=== PATIENT | female | born 1940 | race Caucasian/White ===

== ENCOUNTER 2018-07-06 23:53 | Inpatient (IN) | payer MEDICARE, MEDICAID ==
[~2018-07-06] VITALS: Ht 152.4 cm; Wt 67.1 kg
[~2018-07-06 23:53] MED LIST: BENZ1TAB7 PO; CARV25TA2 PO; ERGO400T7 PO; LEVO50TA8 PO; LISI40TA4 PO; LOSA100T31 PO; MELA5TAB PO; PANT40TA4 PO; ROSU5TAB PO
[2018-07-07 00:15] VITALS: BP 106/62
[2018-07-07] MEDS ORDERED: MAGNESIUM HYDROXIDE 30 ML UDC PO PRN (01:00)
[2018-07-07] MEDS ORDERED: ACETAMINOPHEN 325 MG TABLET PO PRN (01:00)
[2018-07-07] MEDS ORDERED: MAG HYDROX/AL HYDROX/SIMETH 30 ML UDC PO PRN (01:00)
--- NOTE | 2018-07-07 04:46 | NUR ---
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 PER HOLD PATIENT WROTE NOTE TO HER THERAPIST STARTED SCREAMING WANTING TO . NO PLAN VOICED, HOPELESS, LOST FRIEND, LABILE MOOD. HAS LONG HISTORY OF BIPOLAR. PLACED PATIENT IN BED, AWAKE, ALERT ORIENTED X3-4, DENIES SI, SHOWS NO S/S OF ANY PAIN, NO ACUTE DISTRESS NOTED. DEPRESSED, FLAT AFFECT, CALM, COOPERATIVE, POOR JUDGEMENT, ANXIOUS. LIVES ALONE, NKA. REFUSED GENERAL SKIN ASSESSMENT, REFUSED MRSA SCREEN, MED RECON, WILL NOTIFY DR. HAZEL ABOUT MED RECONCILIATION. DAUGHTER WILLIS BAIN WILL BE NOTIFIED OF ADMISSION.. BELONGINGS INVENTORIED AND CHECKED FOR CONTRABAND.PATIENT FUSED TO SIGN CONSENT. BED LOCKED AND PLACED ON LOWEST POSITION. WILL CONTINUE TO MONITOR Q 15 MINS. TO MAINTAIN SAFETY.
--- NOTE | 2018-07-07 06:54 | NUR ---
Paged and spoke with Dr. Bolaños, Re: Med Recon.
--- NOTE | 2018-07-07 06:56 | NUR ---
CALLED PATIENT'S DAUGHTER, WILLIS BAIN ABOUT ADMISSION, LEFT A MESSAGE
[2018-07-07 08:00] VITALS: BP 108/59
[2018-07-07] MEDS ORDERED: Medication Not On Formulary EA (Melatonin 5 MG) PO SCH (09:00)
[2018-07-07] MEDS ORDERED: Medication Not On Formulary EA (Rosuvastatin Calcium (Crestor) 5 MG) PO SCH (09:00)
[2018-07-07] MEDS ORDERED: ERGOCALCIFEROL (VITAMIN D 2) 50,000 UNIT CAPSULE PO SCH (09:30)
[2018-07-07] MEDS: LISINOPRIL (20MG) 20 MG TABLET PO SCH (10:48)
[2018-07-07] MEDS: PANTOPRAZOLE 40 MG TABLET.DR PO SCH (10:48)
[2018-07-07] MEDS: LEVOTHYROXINE SODIUM 50 MCG TABLET PO SCH (10:48)
[2018-07-07] MEDS: LOSARTAN POTASSIUM 50 MG TABLET PO SCH (11:43)
[2018-07-07] MEDS: CARVEDILOL 12.5 MG TABLET PO SCH ×2 (11:43→17:55)
[2018-07-07 16:00] VITALS: BP 127/72
[2018-07-07 20:00] VITALS: BP 133/64
[2018-07-07] MEDS: LORAZEPAM 0.5 MG TABLET PO PRN (20:12)
[2018-07-07] MEDS: ATORVASTATIN 10 MG TABLET PO SCH (21:10)
[2018-07-07] MEDS: MIRTAZAPINE 15 MG TABLET PO SCH (21:10)
[2018-07-07] MEDS ORDERED: QUETIAPINE FUMARATE 25 MG TABLET PO SCH (22:00)
[2018-07-08 06:25] LABS: BASOPHILS % (AUTO) 0.7 % (0.0-2.0); EOSINOPHILS % (AUTO) 3.9 % (0.0-6.0); HEMATOCRIT 37 % (33-45); HEMOGLOBIN 12.8 g/dL (11.5-14.8); LYMPHOCYTES % (AUTO) 42.4 % (20.0-44.0); MEAN CORPUSCULAR HGB CONC 35 g/dl (31.0-36.0); MEAN CORPUSCULAR VOLUME 93 fL (82-100); MONOCYTES # (AUTO) 0.6 /CMM (0.1-1.30); MONOCYTES % (AUTO) 11.8 % (2.0-12.0); NEUTROPHILS % (AUTO) 41.2 % (43.0-81.0); PLATELET COUNT (AUTO) 188 /CMM (150-450); RED BLOOD CELL COUNT(AUTO) 4.02 MIL/uL (4.0-5.2); WHITE BLOOD COUNT (AUTO) 4.7 K/uL (4.3-11.0)
[2018-07-08 06:44] LABS: ALANINE AMINOTRANSFERASE 28 U/L (12-78); ALBUMIN 2.9 g/dL (3.4-5.0); ALKALINE PHOSPHATASE 104 U/L (46-116); ASPARTATE AMINOTRANSFERASE 23 U/L (15-37); BILIRUBIN,TOTAL 0.5 mg/dL (0.2-1.0); CALCIUM, SERUM 8.5 mg/dL (8.5-10.1); CARBON DIOXIDE 27 mmol/L (21-32); CHLORIDE 102 mmol/L (98-107); GLUCOSE 106 mg/dL (74-106); MAGNESIUM 2.1 mg/dL (1.8-2.4); PHOSPHORUS 3.7 mg/dL (2.5-4.9); POTASSIUM 3.9 mmol/L (3.5-5.1); SODIUM SERUM 137 mmol/L (136-145); TOTAL PROTEIN, SERUM 6.4 g/dL (6.4-8.2); UREA NITROGEN, BLOOD 30 mg/dL (7-18)
[2018-07-08 06:54] LABS: CHOLESTEROL 184 mg/dL (<200); HDL CHOLESTEROL 60 mg/dL (40-60); LDL 104 mg/dL (0-99); THYROID STIMULATING HORMONE 2.275 uIU/mL (0.358-3.74); TRIGLYCERIDES 154 mg/dL (30-150)
[2018-07-08 08:00] VITALS: BP 134/58
[2018-07-08] MEDS: LOSARTAN POTASSIUM 50 MG TABLET PO SCH (08:47)
[2018-07-08] MEDS: CARVEDILOL 12.5 MG TABLET PO SCH ×2 (08:47→17:32)
[2018-07-08] MEDS: PANTOPRAZOLE 40 MG TABLET.DR PO SCH (08:48)
[2018-07-08] MEDS: LEVOTHYROXINE SODIUM 50 MCG TABLET PO SCH (08:48)
[2018-07-08] MEDS: LISINOPRIL (20MG) 20 MG TABLET PO SCH (08:48)
[2018-07-08 16:00] VITALS: BP 156/95
[2018-07-08 20:18] VITALS: BP 154/70
[2018-07-08] MEDS: ATORVASTATIN 10 MG TABLET PO SCH (21:33)
[2018-07-08] MEDS: MIRTAZAPINE 15 MG TABLET PO SCH (21:33)
[2018-07-08] MEDS: TEMAZEPAM 7.5 MG CAPSULE PO PRN (21:39)
[2018-07-08] MEDS ORDERED: QUETIAPINE FUMARATE 25 MG TABLET PO SCH (22:00)
--- NOTE | 2018-07-09 06:39 | NUR ---
Refused weekly skin assessment. Offered x3 and still refused.
[2018-07-09 08:00] VITALS: BP 160/78
[2018-07-09] MEDS: CARVEDILOL 12.5 MG TABLET PO SCH ×2 (09:04→16:56)
[2018-07-09] MEDS: LISINOPRIL (20MG) 20 MG TABLET PO SCH (09:05)
[2018-07-09] MEDS: LOSARTAN POTASSIUM 50 MG TABLET PO SCH (09:05)
[2018-07-09] MEDS: PANTOPRAZOLE 40 MG TABLET.DR PO SCH (09:05)
[2018-07-09] MEDS: LEVOTHYROXINE SODIUM 50 MCG TABLET PO SCH (09:05)
--- NOTE | 2018-07-09 11:20 | NUR ---
NTAA contacted Pts daughter Karen [phone] to discuss discharge plan and collateral information. Daughter stated it is safe for pt to return home once stable for discharge. Daughter also stated pt needs Psychiatrist referral. SW will refer pt to Dr. Brian once discharged.
--- NOTE | 2018-07-09 11:57 | NUR ---
INITIAL DISCHARGE PLAN: Patient will return home [address] [address] [facility] [address] [place] [id number] . Pts daughter Karen [phone] stated it is safe for pt to return home once stable for discharge. SW will help form a safe and proper discharge in collaboration with .
[2018-07-09 12:25] LABS: APPEARANCE,URINE CLEAR (CLEAR); BILIRUBIN,URINE NEGATIVE (NEGATIVE); BLOOD, URINE NEGATIVE Ery/uL (NEGATIVE); COLOR,URINE YELLOW (YELLOW); KETONES,URINE NEGATIVE (NEGATIVE); LEUKOCYTE ESTERASE ,URINE NEGATIVE (NEGATIVE); NITRITE, URINE NEGATIVE (NEGATIVE); PROTEIN,URINE NEGATIVE (NEGATIVE); UGLUCOSE NEGATIVE (NEGATIVE); UROBILINOGEN,URINE 0.2 EU/dL (0.2)
[2018-07-09 16:00] VITALS: BP 182/67
[2018-07-09 20:38] VITALS: BP 154/68
[2018-07-09] MEDS: QUETIAPINE FUMARATE 25 MG TABLET PO SCH (21:16)
[2018-07-09] MEDS: TEMAZEPAM 7.5 MG CAPSULE PO PRN (21:17)
[2018-07-09] MEDS: MIRTAZAPINE 15 MG TABLET PO SCH (21:18)
[2018-07-09] MEDS: ATORVASTATIN 10 MG TABLET PO SCH (21:18)
--- NOTE | 2018-07-09 21:19 | NUR ---
Temazepam 7.5 mg cap po given for sleep per her request.
--- NOTE | 2018-07-10 02:01 | NUR ---
POC discussed with RN and endorsed. 15 min head check done at report. Patient sleeping, no s/s of distress or danger. RN will continue to monitor patient q 15 min. Safety precautions in place.
[2018-07-10 08:00] VITALS: BP 135/59
[2018-07-10] MEDS: PANTOPRAZOLE 40 MG TABLET.DR PO SCH (08:32)
[2018-07-10] MEDS: CARVEDILOL 12.5 MG TABLET PO SCH ×2 (08:33→16:06)
[2018-07-10] MEDS: LEVOTHYROXINE SODIUM 50 MCG TABLET PO SCH (08:33)
[2018-07-10] MEDS: LISINOPRIL (20MG) 20 MG TABLET PO SCH (08:33)
[2018-07-10] MEDS: LOSARTAN POTASSIUM 50 MG TABLET PO SCH (08:34)
--- NOTE | 2018-07-10 11:05 | NUR ---
NATA contacted Pts daughter Karen [phone] and left a voicemail informing her pt will be discharged tomorrow Monday07/11/18 back home.
[2018-07-10 16:00] VITALS: BP 165/79
[2018-07-10] MEDS: LORAZEPAM 0.5 MG TABLET PO PRN (16:10)
--- NOTE | 2018-07-10 16:10 | NUR ---
NURSING NOTE: PT STATING SHE IS VERY ANXIOUS, REQUESTING ATIVAN. ADMINISTERED ATIVAN 0.5MG PO PER MD ORDER. WILL CONTINUE TO MONITOR.
[2018-07-10 19:53] VITALS: BP 157/70
[2018-07-10] MEDS: QUETIAPINE FUMARATE 25 MG TABLET PO SCH (21:01)
[2018-07-10] MEDS: MIRTAZAPINE 15 MG TABLET PO SCH (21:01)
[2018-07-10] MEDS: ATORVASTATIN 10 MG TABLET PO SCH (21:01)
[2018-07-10] MEDS: TEMAZEPAM 7.5 MG CAPSULE PO PRN (21:34)
[2018-07-11 08:00] VITALS: BP 152/73
[2018-07-11] MEDS: PANTOPRAZOLE 40 MG TABLET.DR PO SCH (08:46)
[2018-07-11] MEDS: LEVOTHYROXINE SODIUM 50 MCG TABLET PO SCH (08:47)
[2018-07-11] MEDS: LISINOPRIL (20MG) 20 MG TABLET PO SCH (08:48)
[2018-07-11] MEDS: CARVEDILOL 12.5 MG TABLET PO SCH (08:48)
[2018-07-11 08:49] VITALS: BP 152/73
[2018-07-11] MEDS: LOSARTAN POTASSIUM 50 MG TABLET PO SCH (08:49)
--- NOTE | 2018-07-11 11:50 | NUR ---
GPS RN NOTE: PATIENT WAS REQUESTING TO HAVE SLEEPING PILLS ORDER FOR SLEEP ON THE PRESCRIPTION, NOTIFIED DR. MCDANIEL AND PER CALL THE PHARMACY OF THE PATIENT AND ORDER A RESTORIL 7.5MG #30 0 REFILL AND GIVE THE DANN NUMBER. CALLED [facility] ([phone]), PHARMACY OF THE PATIENT AND SPOKE TO KRISTIAN, REGARDING THE MEDICATION, INSTRUCTED ALSO KRISTIAN TO CALL THE DOCTOR. Addendum: 07/11/18 at 1256 by SARAH PINZON II, RN [facility] THE [facility] OF THE PATIENT OF [facility]
--- NOTE | 2018-07-11 11:54 | NUR ---
NATA attempted to contacted Pts daughter Karen [phone] and left a voicemail informing her pt will be discharged today Monday07/11/18 back home at 12:00noon.
--- NOTE | 2018-07-11 12:10 | NUR ---
Discharged patient to [facility] via Tax[facility], patient assisted down the elevator. Patient denies SI/HI/AH/VH and agreed to the discharge instruction. Patient has no sob, no acute distress, breathing even and unlabored, denies pain and discomfort, discharged
--- NOTE | 2018-07-11 12:25 | NUR ---
DISCHARGE NOTE: Pt was discharged on Monday07/11/18 at 12:00pm via [facility] home to [facility] [address] [facility] [address] [place] [id number] . Pts daughter Karen [phone] has been notified. Pts mood is euthymic with congruent affect. Pt denied suicidal/homicidal ideation and denied visual/auditory hallucinations. Pt will be under the care of Psychiatrist: Dr. Naima Brian [address] [facility] [address] [address] [phone]: Dr. Eliseo Laery [address] [facility] [address], [place] [address] [phone]. The multidisciplinary exitcare form was done, printed, signed, and given to the patient.
== END 2018-07-11 12:10 | DRG 885 ==
LOC: GPS 23:53
PROVIDERS: ADMIT Psychiatry & Neurology Psychosomatic Medicine; ATTEND Hospitalist
DX: F33.3 Major depressive disorder, recurrent, severe with psychotic symptoms (principal); F23 Brief psychotic disorder; R45.851 Suicidal ideations; K21.9 Gastro-esophageal reflux disease without esophagitis; I10 Essential (primary) hypertension; F41.9 Anxiety disorder, unspecified; E78.5 Hyperlipidemia, unspecified; D64.9 Anemia, unspecified; E03.9 Hypothyroidism, unspecified; M19.90 Unspecified osteoarthritis, unspecified site
CPT/HCPCS: 36415; 80053-TC; 80061-TC; 81000-TC; 83735-TC; 84100-TC; 84443-TC; 85025-TC

== ENCOUNTER 2019-03-15 07:44 | Emergency (ER) | payer MEDICARE, MEDICAID ==
[~2019-03-15] VITALS: Ht 152.4 cm; Wt 75.3 kg
[~2019-03-15 07:44] MED LIST changes: -BENZ1TAB7 PO
--- NOTE | 2019-03-15 08:00 | NUR ---
GEN WEAKNESS X 1 WEEK; REPORTS OF FEELING "WOBBLY"/UNSTEADY GAIT. PATIENT A/OX4. BREATHING EVEN AND UNLABORED, NO SOB NOTED, NEEDS ATTENDED, AMBULATORY WITH STEADY GAIT. ATTACHED TO THE CLAIM PROCESSOR.
[2019-03-15 08:44] LABS: BASOPHILS % (AUTO) 0.8 % (0.0-2.0); EOSINOPHILS % (AUTO) 3.4 % (0.0-6.0); HEMATOCRIT 35 % (33-45); HEMOGLOBIN 11.8 g/dL (11.5-14.8); LYMPHOCYTES # (AUTO) 1.1 /CMM (0.8-4.8); LYMPHOCYTES % (AUTO) 29.4 % (20.0-44.0); MEAN CORPUSCULAR HGB CONC 34 g/dl (31.0-36.0); MEAN CORPUSCULAR VOLUME 96 fL (82-100); MONOCYTES # (AUTO) 0.4 /CMM (0.1-1.30); MONOCYTES % (AUTO) 11.4 % (2.0-12.0); PLATELET COUNT (AUTO) 263 /CMM (150-450); RED BLOOD CELL COUNT(AUTO) 3.59 MIL/uL (4.0-5.2); WHITE BLOOD COUNT (AUTO) 3.6 K/uL (4.3-11.0)
[2019-03-15 08:49] LABS: CALCIUM, SERUM 9.1 mg/dL (8.5-10.1); CREATININE 1.3 mg/dL (0.6-1.3); POTASSIUM 3.8 mmol/L (3.5-5.1)
[2019-03-15 08:55] LABS: ALBUMIN 3.5 g/dL (3.4-5.0); BILIRUBIN,TOTAL 0.4 mg/dL (0.2-1.0); MAGNESIUM 2.4 mg/dL (1.8-2.4)
[2019-03-15 08:56] LABS: TOTAL PROTEIN, SERUM 7.5 g/dL (6.4-8.2)
--- NOTE | 2019-03-15 09:07 | NUR ---
DR MARIANA CHIU
[2019-03-15 09:10] LABS: APPEARANCE,URINE Clear (CLEAR); BILIRUBIN,URINE Negative (NEGATIVE); BLOOD, URINE Negative Ery/uL (NEGATIVE); COLOR,URINE Yellow (YELLOW); KETONES,URINE Negative (NEGATIVE); LEUKOCYTE ESTERASE ,URINE Negative (NEGATIVE); NITRITE, URINE Negative (NEGATIVE); PH,URINE 5.5 (5.0-8.0); PROTEIN,URINE Negative (NEGATIVE); UGLUCOSE Negative (NEGATIVE); UROBILINOGEN,URINE 0.2 EU/dL (0.2)
--- NOTE | 2019-03-15 10:18 | NUR ---
Ambulatory with a steady gait. Patient discharged to home in stable condition. Written and verbal after care instructions given. Patient verbalizes understanding of instruction.
[2019-03-15 10:22] VITALS: BP 133/68
== END 2019-03-15 10:22 | disposition home or self-care (01) ==
LOC: ER 07:46
DX: R53.83 Other fatigue (principal); R51 Headache; I10 Essential (primary) hypertension; Z88.8 Allergy status to other drugs, medicaments and biological substances; Z79.899 Other long term (current) drug therapy
CPT/HCPCS: 36415; 70450-TC; 80053-TC; 81000-TC; 83735-TC; 85025-TC